=== PATIENT | female | born 1965 | race Caucasian/White ===

== ENCOUNTER 2021-01-29 11:48 | Inpatient (IN) | payer BC ==
[2021-01-29 14:04] VITALS: BMI 20.8
[2021-01-29] MEDS ORDERED: Communication Order-Pharmacy FS SCH (15:28)
[2021-01-29] MEDS ORDERED: Loratadine 10 MG TAB PO SCH (16:00)
[2021-01-29] MEDS ORDERED: Calcium Carbonate 600 MG TAB PO SCH (16:00)
[2021-01-29] MEDS ORDERED: Aspirin Chewable 81 MG TAB PO SCH (16:00)
[2021-01-29] MEDS ORDERED: Ezetimibe 10 MG TAB PO SCH (16:00)
[2021-01-29] MEDS ORDERED: Enoxaparin Sodium 30 MG/0.3 ML SYRINGE SC SCH ×2 (17:45→20:00)
[2021-01-29] MEDS ORDERED: Rosuvastatin 20 MG TAB PO SCH (21:00)
[2021-01-29 21:25] LABS: SARS-CoV-2 NAA Rapid Test Not Detected (NotDetected)
[2021-01-30] MEDS ORDERED: Albumin 5% 500 ML ONE (06:34)
[2021-01-30] MEDS ORDERED: Fentanyl 250 MCG/5 ML VIAL ONE (06:42)
[2021-01-30] MEDS ORDERED: Midazolam HCl 5 mg/5 ml Vial ONE (06:42)
[2021-01-30] MEDS ORDERED: Dexmedetomidine 200 MCG/2 ML VIAL ONE (06:43)
[2021-01-30] MEDS ORDERED: Midazolam HCl 2 mg/2 ml Vial ONE (07:07)
[2021-01-30] MEDS ORDERED: Magnesium Sulfate 1 GM/2 ML VIAL ONE (07:36)
[2021-01-30] MEDS ORDERED: Mannitol 12.5 GM/50 ML ONE (07:36)
[2021-01-30] MEDS ORDERED: Papaverine 60 MG/2 ML VIAL ONE (07:36)
[2021-01-30] MEDS ORDERED: Thrombin 5000 UNITS/5 ML VIAL ONE ×2 (07:36→08:42)
[2021-01-30] MEDS ORDERED: Heparin 5,000 UNITS/ML VIAL ONE (07:36)
[2021-01-30] MEDS ORDERED: Ondansetron PF 4 MG/2 ML Vial ONE (07:36)
[2021-01-30] MEDS ORDERED: Heparin 30,000 units/30 ml VIAL ONE (07:36)
[2021-01-30] MEDS ORDERED: Dexamethasone 20 MG/5 ML VIAL ONE (07:36)
[2021-01-30] MEDS ORDERED: Calcium Chloride 1 GM/10 ML Abboject SYRINGE ONE (07:36)
[2021-01-30] MEDS ORDERED: Cardioplegic Soln 1,000 ML BAG ONE (07:36)
[2021-01-30] MEDS ORDERED: Nitroglycerin 50 MG/250 ML BOT ONE (07:36)
[2021-01-30] MEDS ORDERED: Ketorolac Tromethamine 30 MG/ML VIAL ONE (07:36)
[2021-01-30] MEDS ORDERED: Potassium Chloride 60 MEQ/30 ML VIAL ONE (07:36)
[2021-01-30] MEDS ORDERED: Glycopyrrolate 0.2 MG/ML 5 ML SYRINGE ONE (07:36)
[2021-01-30] MEDS ORDERED: PROPOFOL 200 MG/20 ML VIAL ONE (07:36)
[2021-01-30] MEDS ORDERED: Aminocaproic Acid 5 GM/20 ML VIAL ONE (07:36)
[2021-01-30] MEDS ORDERED: Lidocaine 1% PF 5 ML VIAL ONE (07:36)
[2021-01-30] MEDS ORDERED: Sodium Bicarb 50 MEQ/50 ML Abboject 8.4% SYRINGE ONE (07:36)
[2021-01-30] MEDS ORDERED: Vecuronium 10 MG VIAL ONE (07:36)
[2021-01-30] MEDS ORDERED: Lidocaine 2% PF 100 mg/5 ml Syringe ONE (07:36)
[2021-01-30] MEDS ORDERED: Norepinephrine 4 MG/4 ML VIAL ONE (07:36)
[2021-01-30] MEDS ORDERED: Protamine Sulfate 250 MG/25 ML VIAL ONE (07:36)
[2021-01-30 07:37] LABS: Hemoglobin 14.9 g/dL (12.0-16.0); Mean Corpuscular HGB CONC 34.3 g/dL (32.0-36.0); Mean Corpuscular Hemoglobin 30.9 pg (27.0-31.0); Mean Platelet Volume 8.4 fL (7.4-10.4); Platelet Count 279 thou/uL (130-400); RBC Distribution Width 11.5 % (11.5-14.5); Red Blood Cell (RBC) Count 4.82 mill/uL (4.20-5.40); White Blood Cell (WBC) Count 6.3 thou/uL (4.8-10.8)
[2021-01-30 07:59] LABS: Anion Gap 12 mmol/L (10-20); BUN (Urea Nitrogen) 12 mg/dL (9.8-20.1); Calc. Creatinine Clearance 70 mL/min (70-130); Calcium 10.3 mg/dL (7.8-10.44); Carbon Dioxide 28 mmol/L (22-29); Chloride 106 mmol/L (98-107); Glucose 99 mg/dL (70-105); Potassium 4.5 mmol/L (3.5-5.1); Sodium 141 mmol/L (136-145)
[2021-01-30] MEDS ORDERED: Calcium Carbonate 600 MG TAB PO SCH (09:00)
[2021-01-30] MEDS ORDERED: Ezetimibe 10 MG TAB PO SCH (09:00)
[2021-01-30] MEDS ORDERED: Loratadine 10 MG TAB PO SCH (09:00)
[2021-01-30] MEDS ORDERED: Aspirin Chewable 81 MG TAB PO SCH (09:00)
[2021-01-30] MEDS ORDERED: Insulin Regular 300 UNITS/3 ML VIAL ONE (09:30)
[2021-01-30] MEDS ORDERED: niCARdipine 25 MG in Sodium Chloride 0.9% 250 ML 250 ML IVPB PRN (12:07)
[2021-01-30] MEDS ORDERED: DOPamine 400 MG/D5W 250 ML 250 ML IVPB PRN (12:07)
[2021-01-30] MEDS ORDERED: Norepinephrine 8 MG/0.9% NS 250 ML IVPB PRN (12:07)
[2021-01-30] MEDS ORDERED: Fentanyl 100 MCG/2 ML VIAL SLOW IVP PRN (12:07)
[2021-01-30] MEDS ORDERED: hydrALAZINE 20 MG/ML VIAL SLOW IVP PRN (12:07)
[2021-01-30] MEDS ORDERED: Hetastarch 6% 500 ML 500 ML IVPB PRN (12:07)
[2021-01-30] MEDS ORDERED: Bisacodyl 5 MG TAB PO PRN (12:07)
[2021-01-30] MEDS ORDERED: Morphine 2 MG/ML VIAL SLOW IVP PRN (12:07)
[2021-01-30] MEDS ORDERED: Promethazine HCl 25 MG/ML VIAL IM PRN (12:07)
[2021-01-30] MEDS ORDERED: Mag-Al 1200 mg/1200 mg/30 ML UDCUP PO PRN (12:07)
[2021-01-30] MEDS ORDERED: Acetaminophen 325 MG TAB PO PRN (12:07)
[2021-01-30] MEDS ORDERED: Guaifenesin DM 100-10/5 ML UDCUP PO PRN (12:07)
[2021-01-30] MEDS ORDERED: Potassium Chloride 20 MEQ/100 ML PREMIX BAG IVPB PRN (12:07)
[2021-01-30] MEDS ORDERED: Nitroglycerin 50 MG/250 ML BOT 250 ML IVPB PRN (12:07)
[2021-01-30] MEDS ORDERED: Post-Op Insulin Drip Protocol IVPB ONE (12:07)
[2021-01-30] MEDS ORDERED: Bisacodyl 10 MG SUPP PR PRN (12:07)
[2021-01-30] MEDS ORDERED: Magnesium 2 GM/50 ML 2 GM in Premix Bag 1 BAG IVPB SCH (12:15)
[2021-01-30] MEDS ORDERED: Lantus 1000 UNITS/10 ML VIAL SC SCH (12:30)
[2021-01-30] MEDS ORDERED: Dextrose 50% Abboject 50 ML SYRINGE SLOW IVP PRN (12:30)
[2021-01-30] MEDS ORDERED: HUMULIN R 100 UNITS in Sodium Chloride 0.9% 100 ML IVPB SCH (12:30)
[2021-01-30] MEDS ORDERED: Dextrose 5% in Water 1,000 ML IV PRN (12:30)
[2021-01-30] MEDS: Ondansetron PF 4 MG/2 ML Vial IVP PRN (12:48)
[2021-01-30 12:49] LABS: #Eosinphils 0.1 thou/uL (0.0-0.7); #Lymphocytes 1.2 thou/uL (1.20-3.40); #Monocytes 0.5 thou/uL (0.11-0.59); #Neutrophils 10.2 thou/uL (1.40-6.50); %Basophils 0.1 % (0.0-1.0); %Lymphocytes 10.2 % (21.0-51.0); %Monocytes 3.7 % (0.0-10.0); Hemoglobin 11.5 g/dL (12.0-16.0); Mean Corpuscular HGB CONC 34.3 g/dL (32.0-36.0); Mean Corpuscular Hemoglobin 30.9 pg (27.0-31.0); Mean Corpuscular Volume 90.1 fL (78.0-98.0); Mean Platelet Volume 8.1 fL (7.4-10.4); Platelet Count 162 thou/uL (130-400); RBC Distribution Width 11.4 % (11.5-14.5); Red Blood Cell (RBC) Count 3.73 mill/uL (4.20-5.40); White Blood Cell (WBC) Count 12.1 thou/uL (4.8-10.8)
[2021-01-30] MEDS ORDERED: CEFAZOLIN 2 GM in Premix Bag 1 BAG IVPB SCH (13:00)
[2021-01-30 13:04] LABS: Anion Gap 10 mmol/L (10-20); BUN (Urea Nitrogen) 8 mg/dL (9.8-20.1); Calc. Creatinine Clearance 89 mL/min (70-130); Calcium 6.7 mg/dL (7.8-10.44); Carbon Dioxide 21 mmol/L (22-29); Chloride 113 mmol/L (98-107); Glucose 127 mg/dL (70-105); Potassium 3.9 mmol/L (3.5-5.1); Sodium 140 mmol/L (136-145)
[2021-01-30 13:05] LABS: INR-International Normal Ratio 1.3; PTT 41.2 sec (22.9-36.1); Prothrombin Time 16.7 sec (12.0-14.7)
[2021-01-30] MEDS: Insulin Regular 300 UNITS/3 ML VIAL SC PRN ×2 (13:09→17:59)
[2021-01-30] MEDS: Fentanyl 100 MCG/2 ML VIAL SLOW IVP PRN ×3 (14:19→20:10)
[2021-01-30] MEDS: CEFAZOLIN 2 GM in Premix Bag 1 BAG IVPB SCH (15:15)
[2021-01-30] MEDS: HYDROcodone/Acetaminophen 5/325 mg Tablet PO PRN (15:21)
[2021-01-30] MEDS: Lactated Ringer's 1,000 ML IV SCH (15:51)
[2021-01-30] MEDS ORDERED: Promethazine HCl 25 MG/ML VIAL SLOW IVP PRN (17:52)
[2021-01-30] MEDS ORDERED: Ketorolac Tromethamine 30 MG/ML VIAL IVP SCH ×3 (18:00→22:00)
[2021-01-30 18:10] LABS: Hemoglobin 10.5 g/dL (12.0-16.0)
[2021-01-30 18:20] LABS: Potassium 4.3 mmol/L (3.5-5.1)
[2021-01-30] MEDS: Ezetimibe 10 MG TAB PO SCH (20:09)
[2021-01-30] MEDS: Famotidine/PF 20 mg/2ml Vial SLOW IVP SCH (20:09)
[2021-01-30] MEDS: Rosuvastatin 20 MG TAB PO SCH (20:10)
[2021-01-31] MEDS: CEFAZOLIN 2 GM in Premix Bag 1 BAG IVPB SCH ×2 (00:10→07:05)
[2021-01-31] MEDS: HYDROcodone/Acetaminophen 5/325 mg Tablet PO PRN ×5 (00:19→20:42)
[2021-01-31] MEDS: Ondansetron PF 4 MG/2 ML Vial IVP PRN ×2 (00:39→07:15)
[2021-01-31] MEDS: Ketorolac Tromethamine 30 MG/ML VIAL IVP SCH ×3 (02:02→16:57)
[2021-01-31 04:58] LABS: #Lymphocytes 1.2 thou/uL (1.20-3.40); #Monocytes 1.1 thou/uL (0.11-0.59); #Neutrophils 11.1 thou/uL (1.40-6.50); %Basophils 0.2 % (0.0-1.0); %Lymphocytes 9.1 % (21.0-51.0); %Monocytes 8.1 % (0.0-10.0); %Neutrophils 82.5 % (42.0-75.0); Hemoglobin 9.7 g/dL (12.0-16.0); Mean Corpuscular HGB CONC 34.7 g/dL (32.0-36.0); Mean Corpuscular Hemoglobin 31.4 pg (27.0-31.0); Mean Corpuscular Volume 90.7 fL (78.0-98.0); Mean Platelet Volume 8.3 fL (7.4-10.4); Platelet Count 190 thou/uL (130-400); RBC Distribution Width 11.6 % (11.5-14.5); Red Blood Cell (RBC) Count 3.09 mill/uL (4.20-5.40); White Blood Cell (WBC) Count 13.4 thou/uL (4.8-10.8)
[2021-01-31 05:30] LABS: Anion Gap 8 mmol/L (10-20); BUN (Urea Nitrogen) 7 mg/dL (9.8-20.1); Calc. Creatinine Clearance 87 mL/min (70-130); Calcium 8.3 mg/dL (7.8-10.44); Carbon Dioxide 26 mmol/L (22-29); Chloride 107 mmol/L (98-107); Glucose 114 mg/dL (70-105); Potassium 4.4 mmol/L (3.5-5.1); Sodium 137 mmol/L (136-145)
[2021-01-31] MEDS: Fentanyl 100 MCG/2 ML VIAL SLOW IVP PRN (06:24)
[2021-01-31] MEDS: Lactated Ringer's 1,000 ML IV SCH ×2 (07:02→17:30)
[2021-01-31] MEDS: Aspirin 325 MG TAB PO SCH (09:20)
[2021-01-31] MEDS: Famotidine/PF 20 mg/2ml Vial SLOW IVP SCH ×2 (09:22→20:45)
[2021-01-31] MEDS: Rosuvastatin 20 MG TAB PO SCH (20:45)
[2021-01-31] MEDS: Ezetimibe 10 MG TAB PO SCH (20:45)
[2021-02-01] MEDS: HYDROcodone/Acetaminophen 5/325 mg Tablet PO PRN (00:18)
[2021-02-01] MEDS: Ketorolac Tromethamine 30 MG/ML VIAL IVP SCH ×3 (03:06→18:07)
[2021-02-01] MEDS: Lactated Ringer's 1,000 ML IV SCH (03:08)
[2021-02-01 04:56] LABS: #Lymphocytes 2.5 thou/uL (1.20-3.40); #Monocytes 1.2 thou/uL (0.11-0.59); #Neutrophils 8.7 thou/uL (1.40-6.50); %Basophils 0.4 % (0.0-1.0); %Eosinophils 0.3 % (0.0-10.0); %Lymphocytes 20.3 % (21.0-51.0); %Monocytes 9.5 % (0.0-10.0); %Neutrophils 69.5 % (42.0-75.0); Hemoglobin 9.8 g/dL (12.0-16.0); Mean Corpuscular Hemoglobin 30.9 pg (27.0-31.0); Mean Corpuscular Volume 90.9 fL (78.0-98.0); Mean Platelet Volume 8.2 fL (7.4-10.4); Platelet Count 200 thou/uL (130-400); RBC Distribution Width 11.6 % (11.5-14.5); Red Blood Cell (RBC) Count 3.17 mill/uL (4.20-5.40); White Blood Cell (WBC) Count 12.5 thou/uL (4.8-10.8)
[2021-02-01 05:20] LABS: Anion Gap 9 mmol/L (10-20); BUN (Urea Nitrogen) 11 mg/dL (9.8-20.1); Calc. Creatinine Clearance 88 mL/min (70-130); Calcium 8.5 mg/dL (7.8-10.44); Carbon Dioxide 27 mmol/L (22-29); Chloride 100 mmol/L (98-107); Glucose 109 mg/dL (70-105); Potassium 4.9 mmol/L (3.5-5.1); Sodium 131 mmol/L (136-145)
[2021-02-01] MEDS: Ondansetron PF 4 MG/2 ML Vial IVP PRN (07:44)
[2021-02-01] MEDS: Famotidine/PF 20 mg/2ml Vial SLOW IVP SCH (08:04)
[2021-02-01] MEDS ORDERED: Nitroglycerin 0.4 MG TAB (25 Tab Bottle) SL PRN (09:15)
[2021-02-01] MEDS ORDERED: Bisacodyl 10 MG SUPP PR PRN (09:15)
[2021-02-01] MEDS ORDERED: Bisacodyl 5 MG TAB PO PRN (09:15)
[2021-02-01] MEDS: Aspirin 325 MG TAB PO SCH (09:29)
[2021-02-01] MEDS: traMADol HCl 50 MG TAB PO PRN ×2 (09:31→15:46)
[2021-02-01] MEDS: Ezetimibe 10 MG TAB PO SCH (20:06)
[2021-02-01] MEDS: Rosuvastatin 20 MG TAB PO SCH (20:06)
[2021-02-02] MEDS: Ketorolac Tromethamine 30 MG/ML VIAL IVP SCH ×4 (02:10→17:57)
[2021-02-02] MEDS: Lactated Ringer's 1,000 ML IV SCH (07:55)
[2021-02-02] MEDS: Aspirin 325 mg Enteric Coated Tablet PO SCH (08:00)
[2021-02-02] MEDS: Potassium Chloride 10 MEQ TAB PO SCH (08:00)
[2021-02-02] MEDS: Furosemide 40 MG TAB PO SCH (08:00)
[2021-02-02 14:26] VITALS: BP 125/70
[2021-02-02] MEDS: Rosuvastatin 20 MG TAB PO SCH (20:40)
[2021-02-02] MEDS: Ezetimibe 10 MG TAB PO SCH (20:40)
[2021-02-02] MEDS ORDERED: Metoprolol Tartrate 25 MG TAB PO SCH (21:00)
[2021-02-03] MEDS: traMADol HCl 50 MG TAB PO PRN (04:57)
[2021-02-03] MEDS: Furosemide 40 MG TAB PO SCH (08:10)
[2021-02-03] MEDS: Potassium Chloride 10 MEQ TAB PO SCH (08:10)
[2021-02-03] MEDS: Aspirin 325 mg Enteric Coated Tablet PO SCH (08:11)
[2021-02-03] MEDS ORDERED: Metoprolol Tartrate 25 MG TAB PO SCH (09:00)
[2021-02-03 09:20] VITALS: TEMP 98.4
[2021-02-11 11:15] LABS: Actual Bicarbonate (HCO3a) 21.2 mEq/L (22-28); Analyzer IN Cardio OR; Base Excess (BEa) -2.8 mEq/L (-2.0 to +3.0); CO2 Tension 34.1 mmHg (35.0-45.0); Calcium, Ionized (arterial) 1.11 mmol/L (1.12-1.30); Hemoglobin (Hb) 12.3 g/dL (12.0-16.0); O2 Tension (PaO2), arterial 475.3 mmHg (80.0-100.0); Potassium - ABG Lab 4.33 mmol/L (3.70-5.30); pH, Arterial 7.41 (7.35-7.45)
[2021-02-11 11:15] LABS: Actual Bicarbonate (HCO3a) 24.1 mEq/L (22-28); Analyzer IN Cardio OR; Base Excess (BEa) 1.2 mEq/L (-2.0 to +3.0); CO2 Tension 32.8 mmHg (35.0-45.0); Calcium, Ionized (arterial) 1.17 mmol/L (1.12-1.30); Carboxyhemoglobin (COHb) 0.4 gm% (0.0-3.0); Hemoglobin (Hb) 13.2 g/dL (12.0-16.0); O2 Tension (PaO2), arterial 354.4 mmHg (80.0-100.0); Potassium - ABG Lab 3.87 mmol/L (3.70-5.30); pH, Arterial 7.48 (7.35-7.45)
[2021-02-11 11:15] LABS: Actual Bicarbonate (HCO3a) 22.4 mEq/L (22-28); Analyzer IN Cardio OR; Base Excess (BEa) -1.1 mEq/L (-2.0 to +3.0); CO2 Tension 32.4 mmHg (35.0-45.0); Calcium, Ionized (arterial) 0.95 mmol/L (1.12-1.30); Carboxyhemoglobin (COHb) 0.4 gm% (0.0-3.0); Hemoglobin (Hb) 8.1 g/dL (12.0-16.0); O2 Tension (PaO2), arterial 398.4 mmHg (80.0-100.0); pH, Arterial 7.46 (7.35-7.45)
[2021-02-11 11:16] LABS: Actual Bicarbonate (HCO3a) 22.1 mEq/L (22-28); Analyzer IN Cardio OR; Base Excess (BEa) -2.6 mEq/L (-2.0 to +3.0); CO2 Tension 37.9 mmHg (35.0-45.0); Calcium, Ionized (arterial) 1.01 mmol/L (1.12-1.30); Carboxyhemoglobin (COHb) 0.3 gm% (0.0-3.0); Hemoglobin (Hb) 11.2 g/dL (12.0-16.0); O2 Tension (PaO2), arterial 270.5 mmHg (80.0-100.0); Potassium - ABG Lab 3.74 mmol/L (3.70-5.30); pH, Arterial 7.38 (7.35-7.45)
[2021-02-11 11:16] LABS: Actual Bicarbonate (HCO3a) 23.9 mEq/L (22-28); Analyzer IN Cardio OR; CO2 Tension 40.5 mmHg (35.0-45.0); Calcium, Ionized (arterial) 1.02 mmol/L (1.12-1.30); Carboxyhemoglobin (COHb) 0.3 gm% (0.0-3.0); O2 Tension (PaO2), arterial 471.6 mmHg (80.0-100.0); Potassium - ABG Lab 4.62 mmol/L (3.70-5.30); pH, Arterial 7.39 (7.35-7.45)
[2021-02-11 11:16] LABS: Actual Bicarbonate (HCO3v) 24 mEq/L (22-28); Analyzer IN Cardio OR; Base Excess -1.4 mEq/L (-2.0 to +3.0); Calcium, Ionized (venous) 1.02 mmol/L (1.16-1.32); Chloride (VBG) 108 mmol/L (98-106); Potassium (VBG) 4.78 mmol/L (3.70-5.30); Sodium 135.6 mmol/L (133-146); pH (venous) 7.38 (7.32-7.43)
[2021-02-11 11:17] LABS: Puncture Site Arterial Line
[2021-02-11 11:17] LABS: Puncture Site Arterial Line
[2021-02-11 11:17] LABS: Puncture Site Arterial Line
[2021-02-11 11:18] LABS: Puncture Site Arterial Line
[2021-02-11 11:19] LABS: Puncture Site Arterial Line
== END 2021-02-03 10:25 | disposition home or self-care (01) | DRG 236 ==
LOC: 2NO 13:52 → CCU 01-30 08:12
PROVIDERS: ADMIT Internal Medicine Cardiovascular Disease; ATTEND Internal Medicine Cardiovascular Disease
PROC: 02100Z9 Bypass Coronary Artery, One Artery from Left Internal Mammary, Open Approach (ICD-10-PCS; principal; 2021-01-30)
PROC: 021209W Bypass Coronary Artery, Three Arteries from Aorta with Autologous Venous Tissue, Open Approach (ICD-10-PCS; 2021-01-30)
PROC: 06BQ4ZZ Excision of Left Saphenous Vein, Percutaneous Endoscopic Approach (ICD-10-PCS; 2021-01-30)
PROC: 5A1221Z Performance of Cardiac Output, Continuous (ICD-10-PCS; 2021-01-30)
DX: I25.10 Atherosclerotic heart disease of native coronary artery without angina pectoris (principal); E78.5 Hyperlipidemia, unspecified; Z98.82 Breast implant status; Z20.822 Contact with and (suspected) exposure to COVID-19; Z79.82 Long term (current) use of aspirin; Z79.899 Other long term (current) drug therapy
CPT/HCPCS: 36415; 36416; 71045; 80048; 82805; 85025; 85027; 85610; 85730; 86850; 86900; 86901; 93005; 93010; 93798; J0690; J1100; J1642; J1644; J1650; J1815; J1885; J2001; J2150; J2250; J2405; J2440; J2704; J2720; J3010; J3370; J3475; J3480; P9045; S0017; S0028; U0002

== ENCOUNTER 2022-03-18 10:22 | Outpatient (CLI) | payer BC ==
[2022-03-18 11:28] LABS: ALT (SGPT) 30 U/L (8-55); AST (SGOT) 26 U/L (5-34); Albumin 4.7 g/dL (3.5-5.0); Alkaline Phosphatase 63 U/L (40-110); Anion Gap 13 mmol/L (10-20); BUN (Urea Nitrogen) 17 mg/dL (9.8-20.1); Bilirubin, Total 0.5 mg/dL (0.2-1.2); Calc. Creatinine Clearance 0 mL/min (70-130); Calcium 10.2 mg/dL (7.8-10.44); Carbon Dioxide 30 mmol/L (22-29); Chloride 100 mmol/L (98-107); Globulin 2.2 g/dL (2.4-3.5); Glucose 107 mg/dL (70-105); Protein, Total 6.9 g/dL (6.0-8.3); Sodium 138 mmol/L (136-145)
[2022-03-18 11:30] LABS: #Basophils 0.1 10x3/uL (0.0-0.2); #Eosinphils 0.1 10x3/uL (0.0-0.5); #Monocytes 0.6 10x3/uL (0.0-1.1); #Neutrophils 6.3 10x3/uL (1.5-8.4); %Basophils 0.5 % (0.0-2.0); %Eosinophils 0.8 % (0.0-6.0); %Lymphocytes 22.9 % (18.0-47.0); %Monocytes 6.9 % (0.0-10.0); %Neutrophils 68.7 % (40.0-75.0); Mean Corpuscular HGB CONC 33.8 g/dL (32.0-36.0); Mean Corpuscular Hemoglobin 30.4 pg (27.0-33.0); Mean Platelet Volume 10.1 fl (7.4-10.4); Platelet Count 301 10x3/uL (150-450); RBC Distribution Width 12.7 % (11.5-14.5); White Blood Cell (WBC) Count 9.1 10x3/uL (3.5-10.5)
[2022-03-18 18:44] LABS: SARS-CoV-2 PCR by NAA Not Detected (NotDetected)
== END 2022-03-18 10:23 | disposition home or self-care (01) ==
LOC: LABBT 10:22
PROVIDERS: ATTEND Surgery
DX: Z01.812 Encounter for preprocedural laboratory examination (principal); K64.9 Unspecified hemorrhoids; Z20.822 Contact with and (suspected) exposure to COVID-19
CPT/HCPCS: 80053; 85025; U0003; U0005

== ENCOUNTER 2022-03-21 08:26 | Day surgery (SDC) | payer BC ==
[2022-03-19 14:40] VITALS: BMI 21.0
[2022-03-21] MEDS ORDERED: Lidocaine 1% w/Epinephrine 1:100K 20 ML VIAL ONE (10:29)
[2022-03-21] MEDS ORDERED: Bupivacaine 0.25% HCL 30 ML VIAL ONE (10:29)
[2022-03-21] MEDS ORDERED: Bacitracin Zinc Ointment 30 gm TUBE ONE (10:29)
[2022-03-21] MEDS ORDERED: cefOXitin 2 GM VIAL ONE (10:54)
[2022-03-21] MEDS ORDERED: Sodium Chloride 0.9% 100 ML ONE (10:54)
[2022-03-21] MEDS ORDERED: Midazolam HCl 2 mg/2 ml Vial ONE (10:55)
[2022-03-21] MEDS ORDERED: fentaNYL Citrate/PF 100 MCG/2 ML SYRINGE ONE (10:56)
[2022-03-21] MEDS ORDERED: PROPOFOL 200 MG/20 ML VIAL ONE (11:02)
[2022-03-21] MEDS ORDERED: Glycopyrrolate 0.2 MG/ML 5 ML SYRINGE ONE (11:02)
[2022-03-21] MEDS ORDERED: Ondansetron PF 4 MG/2 ML Vial ONE (11:02)
[2022-03-21] MEDS ORDERED: Dexamethasone 20 MG/5 ML VIAL ONE (11:02)
[2022-03-21] MEDS ORDERED: PHENYLEPHRINE-NS 100 MCG/ML 10 ML SYRINGE ONE (11:02)
[2022-03-21] MEDS ORDERED: Rocuronium Bromide 10 MG/ML (10ML VIAL) ONE (11:02)
[2022-03-21] MEDS ORDERED: Lidocaine 1% PF 5 ML VIAL ONE (11:02)
== END 2022-03-21 13:34 | disposition home or self-care (01) ==
LOC: SDC 08:26
PROVIDERS: ATTEND Surgery
DX: K64.8 Other hemorrhoids (principal); K62.89 Other specified diseases of anus and rectum; E78.5 Hyperlipidemia, unspecified; Z79.82 Long term (current) use of aspirin; Z79.899 Other long term (current) drug therapy; Z95.1 Presence of aortocoronary bypass graft
CPT/HCPCS: 88304; J0694; J1100; J2250; J2405; J2704; J3490; S0020